=== PATIENT | female | born 2000 | race Caucasian/White ===

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

== ENCOUNTER → 2020-01-31 | Outpatient (CLI) | payer BC ==
--- NOTE | 2020-01-31 12:29 | Diagnostic Imaging Report ---
EXAM: LUMBAR SPINE - 2-3 VIEWS INDICATION: Low back pain. Bilateral hip pain. Feet paresthesias. COMPARISON: None FINDINGS: There are 5 lumbar-type vertebral bodies. Normal alignment. Vertebral body heights preserved. No substantial spondylotic change. No fractures. Visualized pelvis is intact. IMPRESSION: Negative lumbar spine radiographs. Dictated by: Dictated on workstation # [id number]
--- NOTE | 2020-01-31 12:29 | Diagnostic Imaging Report ---
EXAM: PELVIS/ISELA HIPS 5> VIEWS INDICATION: Low back pain COMPARISON: None. FINDINGS: No fracture or malalignment. No suspicious osteoblastic or lytic lesions. No degenerative change. IMPRESSION: Negative pelvis and bilateral hip radiographs. Dictated by: Dictated on workstation # [id number]
== END ==
LOC: RAD 11:37
PROVIDERS: ATTEND Family Medicine
DX: M54.5 Low back pain (principal); M25.551 Pain in right hip; M25.552 Pain in left hip; R20.2 Paresthesia of skin
CPT/HCPCS: 72100; 73523

== ENCOUNTER → 2021-01-03 | Outpatient (CLI) | payer BC ==
--- NOTE | 2021-01-03 15:44 | Diagnostic Imaging Report ---
PROCEDURE: MRI lumbar spine. TECHNIQUE: Multiplanar, multisequence MRI of the lumbar spine was performed without contrast. INDICATION: Low back pain with radiculopathy. COMPARISON: Lumbar spine radiographs 01/31/2020. FINDINGS: Normal alignment. Vertebral body heights are preserved. Normal bone marrow signal. The intervertebral discs are well-preserved. No spinal canal, lateral recess or neural foraminal narrowing. No abnormal signal in the conus which terminates at L1. Normal morphology of the cauda equina. Visualized paravertebral soft tissues are unremarkable. IMPRESSION: Normal MRI of the lumbar spine. Dictated by: Dictated on workstation # [id number]
== END ==
LOC: RAD 13:15
PROVIDERS: ATTEND Family Medicine
DX: M54.16 Radiculopathy, lumbar region (principal)
CPT/HCPCS: 72148

== ENCOUNTER → 2022-02-10 | Outpatient (CLI) | payer BC ==
--- NOTE | 2022-02-10 13:09 | Diagnostic Imaging Report ---
INDICATION: anatomy survey TECHNIQUE: Multiple real-time grayscale images were obtained over the gravid uterus. COMPARISON: None FINDINGS: Cervix measures 3.3 cm in length. Fetus is in cephalic presentation. The placenta is fundal and posterior in position. No placenta previa. The amount of amniotic fluid appears visually appropriate. Maternal adnexa are not well visualized due to advanced gestational age. The following anatomy is visualized and normal: Profile, four-chamber heart, right ventricular outflow tract, left ventricular outflow tract, urinary bladder, three-vessel cord, umbilical cord insertion, diaphragm, spine, lips/nose, cerebral ventricles, kidneys, cerebellum and bilateral lower extremities. Normal variants include prominent extrarenal pelves on both sides as well as subcentimeter choroid plexus cyst. Biometrical measurements are as follows: Biparietal 4.96 cm, age 21 weeks 1 days. Head circumference 17.82 cm, age 20 weeks 2 days. Abdominal circumference 15.40 cm, age 20 weeks 5 days. Femur length 3.43 cm, age 20 weeks 6 days. Sonographic estimate age: 20 weeks 6 days. Sonographic estimated date of delivery: 06/24/2022. Estimated Weight: 368 gm (+/- 54 gm). LMP percentile: 50%. heart rate: 144 beats per minute. number: 1 of 1. IMPRESSION: 1. Single live intrauterine has normal anatomy survey. 2. Dating by today's ultrasound is concordant with clinical age and due date. Dictated by: Dictated on workstation # [id number]
== END ==
LOC: RAD 10:00
PROVIDERS: ATTEND Nurse Practitioner Women's Health
DX: Z34.02 Encounter for supervision of normal first pregnancy, second trimester (principal)
CPT/HCPCS: 76805

== ENCOUNTER 2022-06-24 19:10 | Inpatient (IN) | payer BC ==
[~2022-06-24] VITALS: Ht 160 cm; Wt 92.6 kg
[2022-06-24 19:40] VITALS: BP 132/74
[2022-06-24] MEDS ORDERED: NS IV 500 ML 500 ML ONE (19:42)
[2022-06-24] MEDS ORDERED: D5 LR IV SOLUTION 1,000 ML IV ONE (19:43)
[2022-06-24] MEDS: D5 LR IV SOLUTION 1,000 ML IV SCH (19:48)
[2022-06-24] MEDS ORDERED: MINERAL OIL 30 ML UDC TOP PRN (20:00)
[2022-06-24] MEDS ORDERED: NS IV 500 ML 500 ML IV SCH (20:00)
[2022-06-24 20:06] LABS: BASOPHILS % (AUTO) 0 % (0-10); EOSINOPHILS % (AUTO) 0 % (0-10); HEMATOCRIT 39 % (35-52); HEMOGLOBIN 13.7 g/dL (11.5-16.0); LYMPHOCYTES # (AUTO) 1.9 10^3/uL (1.0-4.0); LYMPHOCYTES % (AUTO) 16 % (12-44); MEAN CORPUSCULAR HEMOGLOBIN 32 pg (25-34); MEAN CORPUSCULAR HGB CONC 35 g/dL (32-36); MEAN CORPUSCULAR VOLUME 91 fL (80-99); MEAN PLATELET VOLUME 11.4 fL (9.0-12.2); MONOCYTES # (AUTO) 0.5 10^3/uL (0.0-1.0); MONOCYTES % (AUTO) 4 % (0-12); NEUTROPHILS # (AUTO) 9.5 10^3/uL (1.8-7.8); NEUTROPHILS % (AUTO) 79 % (42-75); PLATELET COUNT 192 10^3/uL (130-400)
[2022-06-24 20:07] LABS: BILIRUBIN,URINE NEGATIVE (NEGATIVE); CLARITY,URINE CLEAR; COLOR,URINE YELLOW; GLUCOSE, URINE (UA) NEGATIVE (NEGATIVE); KETONES,URINE 1+ (NEGATIVE); LEUKOCYTE ESTERASE ,URINE NEGATIVE (NEGATIVE); NITRITE,URINE NEGATIVE (NEGATIVE); PROTEIN,URINE NEGATIVE (NEGATIVE)
[2022-06-24 20:14] LABS: BACTERIA,URINE TRACE /HPF; WBC,URINE RARE /HPF
[2022-06-24 20:15] LABS: SQUAMOUS EPITHELIAL CELL,UR 0-2 /HPF
[2022-06-24 21:10] VITALS: BP 118/79
[2022-06-24] MEDS ORDERED: CATHETER FLUSH 10 ML SYR IV SCH (22:00)
[2022-06-24 22:10] VITALS: BP 125/74
[2022-06-24 23:09] VITALS: BP 115/67
[2022-06-25] VITALS (62 sets, daily range): BP systolic 99–192; BP diastolic 54–89
[2022-06-25] MEDS: D5 LR IV SOLUTION 1,000 ML IV SCH ×3 (03:19→16:33)
--- NOTE | 2022-06-25 07:26 | History & Physical-OB ---
LAVERNE KELLEYULTON 06/25/22 0726: OB - Chief Complaint & HPI Date/Time Date of Admission: Date of Admission: Jun 24, 2022 at 19:10 Date seen by a Provider: Jun 25, 2022 Time Seen by a Provider: 07:10 Chief Complaint/History OB-Reason for Admission/Chief: Induction of Labor Hx : 1 Hx Para: 0 Expected Date of Delivery: Jun 26, 2022 Gestational Age in Weeks: 39 Gestational Age in Days: 5 Indication for induction: maternal discomfort Allergies and Home Medications Allergies Coded Allergies: No Known Drug Allergies (Unverified , 02/12/09) Patient Home Medication List Home Medication List Reviewed: Yes OB - History Hx of Present Care: Yes Ultrasounds: Normal mid trimester US Obstetrical Complications: None Medical Complications: None Obstetrical History Hx : 1 Hx Para: 0 Number of Living Children: 0 Patient Past Medical History none Social History/Family History Alcohol Use: Denies Use Recreational Drug Use: No Smoking Cessation: Never smoker Immunizations Influenza Vaccine Up-to-Date: No; Not Current Rubella: immune RPR/VDRL: Negative GBS Status: Negative HBsAG: Negative OB - Admission Exam Physical Exam Vitals: Vital Signs 06/24/22 06/25/22 06/25/22 19:40 05:09 06:10 Temp 36.8 Pulse 77 Resp 18 B/P (MAP) 121/83 (96) Pulse Ox 97 O2 Delivery Room Air HEENT: NCAT Heart: Rhythm Normal Lungs: Clear Abdomen: Gravid Extremities: Edema (mild LE edema ) Cervical Dilatation: other (1.5cm @ 0430) Membranes: Intact Heart Rate: 130's Labs Laboratory Tests Test 06/24/22 19:50 Range/Units White Blood Count 12.0 H 4.3-11.0 10^3/uL Red Blood Count 4.32 3.80-5.11 10^6/uL Hemoglobin 13.7 11.5-16.0 g/dL Hematocrit 39 35-52 % Mean Corpuscular Volume 91 80-99 fL Mean Corpuscular Hemoglobin 32 25-34 pg Mean Corpuscular Hemoglobin Concent 35 32-36 g/dL Red Cell Distribution Width 12.3 10.0-14.5 % Platelet Count 192 130-400 10^3/uL Mean Platelet Volume 11.4 9.0-12.2 fL Immature Granulocyte % (Auto) 0 % Neutrophils (%) (Auto) 79 H 42-75 % Lymphocytes (%) (Auto) 16 12-44 % Monocytes (%) (Auto) 4 0-12 % Eosinophils (%) (Auto) 0 0-10 % Basophils (%) (Auto) 0 0-10 % Neutrophils # (Auto) 9.5 H 1.8-7.8 10^3/uL Lymphocytes # (Auto) 1.9 1.0-4.0 10^3/uL Monocytes # (Auto) 0.5 0.0-1.0 10^3/uL Eosinophils # (Auto) 0.0 0.0-0.3 10^3/uL Basophils # (Auto) 0.0 0.0-0.1 10^3/uL Immature Granulocyte # (Auto) 0.1 0.0-0.1 10^3/uL Urine Color YELLOW Urine Clarity CLEAR Urine pH 6.0 5-9 Urine Specific [place] 1.010 L 1.016-1.022 Urine Protein NEGATIVE NEGATIVE Urine Glucose (UA) NEGATIVE NEGATIVE Urine Ketones 1+ H NEGATIVE Urine Nitrite NEGATIVE NEGATIVE Urine Bilirubin NEGATIVE NEGATIVE Urine Urobilinogen 0.2 < = 1.0 MG/DL Urine Leukocyte Esterase NEGATIVE NEGATIVE Urine RBC (Auto) 1+ H NEGATIVE Urine RBC NONE /HPF Urine WBC RARE /HPF Urine Squamous Epithelial Cells 0-2 /HPF Urine Renal Epithelial Cells NONE /HPF Urine Crystals NONE /LPF Urine Bacteria TRACE /HPF Urine Casts NONE /LPF Urine Mucus NEGATIVE /LPF Urine Culture Indicated NO OB - Assessment/Plan/Diagnosis Assessment Assessment: induction of labor, observation Admission Dx 22 F 39+6 wks induced on 06/24/22 for labor of baby boy Admission Status: Inpatient Order (span 2 midnights) Reason for Inpatient Admission: induction of labor Plan Plan: Induction Induction Method: per Misoprostol Protocol DAVID HUERTA DO 06/25/22 1317: Allergies and Home Medications Allergies Coded Allergies: No Known Drug Allergies (Unverified , 02/12/09) OB - Assessment/Plan/Diagnosis Plan Other Plan Verification and Attestation of Medical Student E/M Service A medical student performed and documented this service in my presence. I reviewed and verified all information documented by the medical student and made modifications to such information, when appropriate. I personally performed the physical exam and medical decision making. David Huerta, Jun 25, 2022,13:17 LEMUEL KELLEY Jun 25, 2022 07:26 DAVID HUERTA DO Jun 25, 2022 13:17
[2022-06-25] MEDS ORDERED: OXYTOCIN PRE-MIX DRIP 500 ML IV SCH (08:15)
[2022-06-25] MEDS ORDERED: fentaNYL 2 mcg/ml BUPIVA 0.125 100 ML ONE (08:30)
[2022-06-25] MEDS ORDERED: LACTATED RINGERS 1,000 ML IV ONE ×3 (08:30→13:00)
[2022-06-25] MEDS ORDERED: ONDANSETRON 4 MG/2 ML (SDV) Z0FRAN IV PRN ×2 (09:15→13:00)
[2022-06-25] MEDS ORDERED: CATHETER FLUSH 10 ML SYR IV PRN (09:15)
[2022-06-25] MEDS ORDERED: NALOXONE 0.4 MG/ML 1 ML (NARCAN) VIAL IV PRN ×4 (09:15→21:30)
[2022-06-25] MEDS ORDERED: fentaNYL INJ 100 MCG/2 ML AMP INJ ONE (09:15)
[2022-06-25] MEDS ORDERED: fentaNYL 2 mcg/ml BUPIVA 0.125 100 ML IV SCH (09:15)
[2022-06-25] MEDS ORDERED: fentaNYL INJ 100 MCG/2 ML AMP ONE (09:55)
[2022-06-25] MEDS ORDERED: diphenhydrAMINE 50 MG/ML INJ (BENADRYL) IV PRN (13:00)
[2022-06-25] MEDS ORDERED: METOCLOPRAMIDE INJ 10 MG/2 ML (REGLAN) IV PRN (13:00)
[2022-06-25] MEDS: fentaNYL 2 mcg/ml BUPIVA 0.125 100 ML EPI SCH ×2 (14:13→16:25)
[2022-06-25] MEDS ORDERED: LIDOCAINE/EPI 2% 1:200,00 (XYLOCAINE) 10 ML VIAL ONE (17:14)
[2022-06-25] MEDS ORDERED: PROMETHAZINE INJ 25 MG/ML (PHENERGAN) AMP ONE (18:58)
[2022-06-25] MEDS ORDERED: PROMETHAZINE INJ 25 MG/ML (PHENERGAN) AMP IVP ONE (19:15)
[2022-06-25] MEDS: OXYTOCIN PRE-MIX DRIP 500 ML IV SCH ×2 (21:11→21:38)
[2022-06-25] MEDS ORDERED: HYDROcodone/APAP 5 MG/325 MG (LORTAB) TAB PO PRN (21:30)
[2022-06-25] MEDS ORDERED: MEASLES,MUMPS,RUBELLA 1 EA INJ SQ ONE (21:30)
[2022-06-25] MEDS ORDERED: DIBUCAINE 1% OINTMENT 30 GM TUBE TOP PRN (21:30)
[2022-06-25] MEDS ORDERED: TETANUS,DIPTH,PERTUSS P/F (BOOSTRIX) 0.5 ML VIAL IM ONE (21:30)
--- NOTE | 2022-06-25 21:35 | OB Labor & Delivery Record ---
L&D History History Expected Date of Delivery: Jun 26, 2022 Gestational Age in Weeks: 39 Hx : 1 Hx Para: 0 Complications Events: Routine care Operative Indications (Cesarea: N/A-Vaginal Delivery Intrapartal Events: None L&D Stage1 Stage One Onset of Labor - Date: Jun 25, 2022 Monitors and Tracing Monitor Mode: External Heart Rate: 150 Monitor Accelerations: Uniform Monitor Decelerations: Variable Station: -1 Jail Variability: Average (6-10) Short Term Variability: Present Presentation: Vertex Vital Signs VS - Last 72 Hours, by Label 06/24/22 06/24/22 06/24/22 06/24/22 19:40 21:10 22:10 23:09 Temp 37.3 Pulse 104 98 93 96 Resp 18 18 18 18 B/P (MAP) 118/79 (92) 125/74 (91) 115/67 (83) Pulse Ox 97 O2 Delivery Room Air 06/25/22 06/25/22 06/25/22 06/25/22 00:09 01:09 02:09 03:09 Pulse 93 85 87 85 Resp 18 18 18 18 B/P (MAP) 119/77 (91) 108/61 (77) 117/74 (88) 122/58 (79) 06/25/22 06/25/22 06/25/22 06/25/22 04:09 05:09 06:10 07:08 Temp 36.8 Pulse 90 75 77 79 Resp 18 18 18 18 B/P (MAP) 117/63 (81) 116/71 (86) 121/83 (96) 124/67 (86) O2 Delivery Room Air 06/25/22 06/25/22 06/25/22 06/25/22 07:58 08:10 09:09 09:38 Temp 37.0 Pulse 95 99 96 Resp 18 18 18 B/P (MAP) 126/74 (91) 128/85 (99) 133/62 (85) Pulse Ox 99 O2 Delivery Room Air Room Air Room Air 06/25/22 06/25/22 06/25/22 06/25/22 09:40 09:43 09:46 09:49 Pulse 89 100 81 86 Resp 18 18 18 18 B/P (MAP) 120/63 (82) 129/82 (98) 129/83 (98) 115/76 (89) Pulse Ox 99 99 O2 Delivery Room Air Room Air Room Air Room Air 06/25/22 06/25/22 06/25/22 06/25/22 09:52 09:55 09:58 10:01 Temp 36.8 Pulse 89 86 82 100 Resp 18 18 18 18 B/P (MAP) 123/83 (96) 115/72 (86) 111/71 (84) 117/72 (87) Pulse Ox 100 98 99 O2 Delivery Room Air Room Air Room Air Room Air 06/25/22 06/25/22 06/25/22 06/25/22 10:08 10:12 10:18 10:33 Pulse 81 74 88 89 Resp 18 18 18 18 B/P (MAP) 117/56 (76) 111/59 (76) 109/62 (78) 115/62 (79) Pulse Ox 97 98 99 99 O2 Delivery Room Air Room Air Room Air Room Air 06/25/22 06/25/22 06/25/22 06/25/22 11:00 11:15 11:30 11:45 Temp 36.9 36.9 Pulse 86 102 89 89 Resp 18 18 18 18 B/P (MAP) 119/70 (86) 119/76 (90) 147/63 (91) 147/63 (91) Pulse Ox 97 97 99 99 O2 Delivery Room Air Room Air Room Air Room Air 06/25/22 06/25/22 06/25/22 06/25/22 12:15 12:30 12:45 13:31 Temp 36.6 36.9 Pulse 80 95 99 Resp 18 18 18 18 B/P (MAP) 111/63 (79) 125/63 (83) 107/61 (76) 110/64 (79) Pulse Ox 96 99 99 O2 Delivery Room Air Room Air Room Air Room Air 06/25/22 06/25/22 06/25/22 06/25/22 14:04 14:19 14:35 15:09 Temp 36.9 36.7 36.9 Pulse 81 84 80 96 Resp 18 18 18 18 B/P (MAP) 120/67 (84) 104/57 (73) 99/54 (69) Pulse Ox 99 100 100 100 O2 Delivery Room Air Room Air Room Air Room Air 06/25/22 06/25/22 06/25/22 9/7/22 15:18 15:30 15:46 16:00 Temp 36.9 36.9 36.9 36.9 Pulse 96 106 111 111 Resp 18 18 18 18 B/P (MAP) 114/59 (77) 126/62 (83) 125/65 (85) 125/65 (85) Pulse Ox 100 100 100 100 O2 Delivery Room Air Room Air Room Air Room Air 06/25/22 06/25/22 06/25/22 06/25/22 16:15 16:39 16:39 17:15 Temp 36.9 36.8 Pulse 105 111 111 129 Resp 18 18 18 18 B/P (MAP) 118/70 (86) 110/68 (82) 110/68 (82) 113/67 (82) Pulse Ox 97 100 100 100 O2 Delivery Room Air Room Air Room Air Room Air 06/25/22 06/25/22 06/25/22 06/25/22 17:30 17:47 18:15 18:30 Temp 36.4 Pulse 120 120 122 117 Resp 18 18 18 18 B/P (MAP) 115/74 (88) 115/74 (88) 116/72 (87) 124/61 (82) Pulse Ox 100 100 100 100 O2 Delivery Room Air Room Air Room Air Room Air 06/25/22 18:45 Temp 36.7 Pulse 117 Resp 18 B/P (MAP) 124/84 (97) Pulse Ox 100 O2 Delivery Room Air Rupture of Membranes Spontaneous Ruture of Membrane: No Amniotic Membrane Rupture Time: 0755 Amniotic Membrane Fluid Desc.: Clear Induction/Anesthesia Epidural Cath Placement - Time: 0946 Progress/Notes Patient admitted for elective IOL. Cytotec given overnight. AROM performed this AM, clear fluid. Pitocin augmentation started. She received an epidural and progressed to complete and + 1 station. L&D Stage2 Stage Two Stage II Date: Jun 25, 2022 Monitors and Tracing Monitor Mode: External Heart Rate: 150 Monitor Accelerations: Uniform Monitor Decelerations: Variable Jail Variability: Average (6-10) Short Term Variability: Present Position: Right Occiput Anterior Presentation: Vertex Cord Descript/Complications Cord Vessel Description: 3 Vessels Complications Patient able to progress vertex to + 2 station after 2 hours of pushing, when progress stopped and her pushing became ineffective. heart rate became tachycardic, and deep variables with pushing were noted. To expedite vaginal delivery a kiwi vacuum extractor was used. RML cut, kiwi cup placed over flexion point. 550mmHg applied using handpiece. With one pop off i was able to delivery head with gentle extension over the RML episiotomy. Anterior shoulder then reduced and remainder of delivery was unremarkable. Delivery Type Anterior Shoulder: Left Episiotomy/Perineal Laceration Laceraction(s)/Extensions: Yes Episiotomy Description: Right Mediolateral, 3rd degree Degree (describe repair) RML with extension to 3rd degree laceration repaired using 3-0 and 2-0 vicryl suture in usual fashion. Condition of Infant Delivery 1 minute Comment: 9 5 minute Comment: 9 Notes Live male infant weight 7lbs 13oz. Condition of Condition of : Living Exam: No Observed Abnormalities Resuscitation Resuscitation: N/A - Spontaneous Resp L&D Stage3 Stage Three Stage III Date: Jun 25, 2022 Pictocin Pitocin Administration mu/min: 8 Pitocin ml/hr: 8 Pitocin Administration Comment: 30 mu wide open after delivery of placenta Placenta Delivery Placenta Delivery: Spontaneous Delivery Summary Summary Estimated blood loss (mL): 400 Attending at delivery: David Huerta DO Condition of Delivery Examined: Cervix Examined, Uterus Explored Post Hemorrhage: No Condition of Mother stable Condition of (s) stable DAVID HUERTA DO Jun 25, 2022 21:35
--- NOTE | 2022-06-25 21:39 | Discharge Inst-Women's Service ---
Discharge Inst-Women's Serv Depart Medication/Instructions New, Converted or Re-Newed RX: Transmitted to Pharmacy Final Diagnosis PPD 2 VAVD Problems Reviewed?: Yes Consults/Follow Up Additional Follow Up: Yes Orders/Referrals Dr. Huerta in 6 weeks Activity Activity: Activity as Tolerated Driving Instructions: No Driving for 1 Week NO SMOKING: NO SMOKING Nothing Inside Vagina: No Douching, No [place], No Tampons Diet Discharge Diet: No Restrictions Symptoms to Report to : Bleeding Excessive, Pain Increased, Fever Over 101 Degrees F, Vaginal Bleeding Increase, Questions/Concerns For Any Problems or Questions: Contact Your Physician DAVID HUERTA DO Jun 25, 2022 21:39
[2022-06-25] MEDS ORDERED: BENZ78AE5 TP (21:41)
[2022-06-25] MEDS ORDERED: DOCU100C37 PO (21:41)
[2022-06-25] MEDS ORDERED: ACHD5005 PO (21:41)
[2022-06-25] MEDS ORDERED: PNV1TABL67 PO (21:41)
[2022-06-25] MEDS ORDERED: DIBU30OI TOP (21:41)
[2022-06-25] MEDS ORDERED: FERR325T24 PO (21:41)
[2022-06-25] MEDS ORDERED: IBUP-844 PO (21:41)
[2022-06-25] MEDS ORDERED: CATHETER FLUSH 10 ML SYR IV SCH (22:00)
[2022-06-26] MEDS: IBUPROFEN 600 MG (MOTRIN) TAB PO SCH ×6 (00:24→23:43)
[2022-06-26] MEDS: WITCH HAZEL(TUCKS) 40 EA JAR TOP PRN ×2 (00:24→04:43)
[2022-06-26] MEDS: BENZOCAINE/MENTHOL (DERMOPLAST) 56 ML CAN TP PRN ×2 (00:24→04:43)
[2022-06-26] MEDS: ACETAMINOPHEN 500 MG TAB (TYLENOL) PO PRN ×4 (04:01→22:37)
[2022-06-26 04:02] VITALS: BP 117/55
[2022-06-26] MEDS ORDERED: LIDOCAINE/EPI 2% 1:200,00 (XYLOCAINE) 10 ML VIAL INJ ONE (05:15)
[2022-06-26] MEDS ORDERED: LIDOCAINE/EPI 2% 1:200,00 (XYLOCAINE) 10 ML VIAL ONE (05:18)
[2022-06-26 06:13] LABS: BASOPHILS % (AUTO) 0 % (0-10); EOSINOPHILS % (AUTO) 0 % (0-10); HEMATOCRIT 30 % (35-52); HEMOGLOBIN 10.3 g/dL (11.5-16.0); LYMPHOCYTES # (AUTO) 1.8 10^3/uL (1.0-4.0); LYMPHOCYTES % (AUTO) 10 % (12-44); MEAN CORPUSCULAR HEMOGLOBIN 31 pg (25-34); MEAN CORPUSCULAR HGB CONC 34 g/dL (32-36); MEAN CORPUSCULAR VOLUME 92 fL (80-99); MEAN PLATELET VOLUME 11.6 fL (9.0-12.2); MONOCYTES # (AUTO) 1.3 10^3/uL (0.0-1.0); MONOCYTES % (AUTO) 7 % (0-12); NEUTROPHILS # (AUTO) 14.3 10^3/uL (1.8-7.8); NEUTROPHILS % (AUTO) 82 % (42-75); PLATELET COUNT 155 10^3/uL (130-400); WHITE BLOOD COUNT 17.5 10^3/uL (4.3-11.0)
--- NOTE | 2022-06-26 07:43 | Postpartum Progress Note ---
JUSTINLAVERNELEMUEL 06/26/22 0743: Note Note Day # 1 Subjective: Patient is without complaints. Ambulating, voiding. Tolerating a regular diet without nausea or vomiting. Normal lochia. Pain is well controlled with oral pain medications. Breast feeding with nipple shield assist. Objective: VSS afebrile WBC 17.2 Physical Exam: General - Alert and oriented, no apparent distress Abdomen - Soft, appropriately tender to palpation, non-distended, fundus firm at umbilicus Extremities - no edema, negative Nick's bilaterally Assessment: Acute blood loss anemia Hgb 10.3 post- day # 1, status post vacuum assisted vaginal delivery. Recovering well, hemodynamically stable Plan: Routine care. Encourage breast feeding. Encourage ambulation. Ferrous sulfate supplementation. Plan for discharge today Vitals - Labs Vital Signs - I&O Vital Signs Date Time Temp Pulse Resp B/P (MAP) Pulse Ox O2 Delivery O2 Flow Rate FiO2 06/26/22 04:02 36.3 97 18 117/55 (75) 97 Room Air 06/25/22 23:33 142 18 123/58 (79) Room Air 06/25/22 23:02 113 18 116/58 (77) Room Air 06/25/22 22:47 113 18 109/58 (75) Room Air 06/25/22 22:32 122 18 112/61 (78) Room Air 06/25/22 22:17 130 18 120/58 (78) Room Air 06/25/22 22:02 37.7 121 18 120/80 (93) Room Air 06/25/22 21:32 118 18 111/68 (82) Room Air 06/25/22 21:17 137 18 126/59 (81) Room Air 06/25/22 21:02 110 18 122/57 (78) Room Air 06/25/22 20:47 18 Room Air 06/25/22 20:45 131 18 192/89 (123) Room Air 06/25/22 20:30 115 18 129/69 (89) Room Air 06/25/22 20:15 103 18 127/78 (94) Room Air 06/25/22 20:00 85 18 114/71 (85) Room Air 06/25/22 19:45 99 18 116/69 (85) Room Air 06/25/22 19:30 98 18 104/65 (78) Room Air 06/25/22 19:15 107 18 123/67 (85) Room Air 06/25/22 18:45 36.7 117 18 124/84 (97) 100 Room Air 06/25/22 18:30 117 18 124/61 (82) 100 Room Air 06/25/22 18:15 36.4 122 18 116/72 (87) 100 Room Air 06/25/22 17:47 120 18 115/74 (88) 100 Room Air 06/25/22 17:30 120 18 115/74 (88) 100 Room Air 06/25/22 17:15 129 18 113/67 (82) 100 Room Air 06/25/22 16:39 36.8 111 18 110/68 (82) 100 Room Air 06/25/22 16:39 36.9 111 18 110/68 (82) 100 Room Air 06/25/22 16:15 105 18 118/70 (86) 97 Room Air 06/25/22 16:00 36.9 111 18 125/65 (85) 100 Room Air 06/25/22 15:46 36.9 111 18 125/65 (85) 100 Room Air 06/25/22 15:30 36.9 106 18 126/62 (83) 100 Room Air 06/25/22 15:18 36.9 96 18 114/59 (77) 100 Room Air 06/25/22 15:09 36.9 96 18 100 Room Air 06/25/22 14:35 36.7 80 18 99/54 (69) 100 Room Air 06/25/22 14:19 36.9 84 18 104/57 (73) 100 Room Air 06/25/22 14:04 81 18 120/67 (84) 99 Room Air 06/25/22 13:31 36.9 99 18 110/64 (79) 99 Room Air 06/25/22 12:45 95 18 107/61 (76) 99 Room Air 06/25/22 12:30 36.6 80 18 125/63 (83) 96 Room Air 06/25/22 12:15 18 111/63 (79) Room Air 06/25/22 11:45 36.9 89 18 147/63 (91) 99 Room Air 06/25/22 11:30 36.9 89 18 147/63 (91) 99 Room Air 06/25/22 11:15 102 18 119/76 (90) 97 Room Air 06/25/22 11:00 86 18 119/70 (86) 97 Room Air 06/25/22 10:33 89 18 115/62 (79) 99 Room Air 06/25/22 10:18 88 18 109/62 (78) 99 Room Air 06/25/22 10:12 74 18 111/59 (76) 98 Room Air 06/25/22 10:08 81 18 117/56 (76) 97 Room Air 06/25/22 10:01 100 18 117/72 (87) 99 Room Air 06/25/22 09:58 82 18 111/71 (84) 98 Room Air 06/25/22 09:55 36.8 86 18 115/72 (86) Room Air 06/25/22 09:52 89 18 123/83 (96) 100 Room Air 06/25/22 09:49 86 18 115/76 (89) 99 Room Air 06/25/22 09:46 81 18 129/83 (98) Room Air 06/25/22 09:43 100 18 129/82 (98) 99 Room Air 06/25/22 09:40 89 18 120/63 (82) Room Air 06/25/22 09:38 96 18 133/62 (85) 99 Room Air 06/25/22 09:09 99 18 128/85 (99) Room Air 06/25/22 08:10 95 18 126/74 (91) Room Air 06/25/22 07:58 37.0 I & O 06/26/22 07:00 Intake Total 2100 ml Balance 2100 ml Labs Laboratory Tests 06/26/22 05:49: White Blood Count 17.5H, Red Blood Count 3.28L, Hemoglobin 10.3#L, Hematocrit 30L, Mean Corpuscular Volume 92, Mean Corpuscular Hemoglobin 31, Mean Corpuscular Hemoglobin Concent 34, Red Cell Distribution Width 12.4, Platelet Count 155, Mean Platelet Volume 11.6, Immature Granulocyte % (Auto) 1, Neutrophils (%) (Auto) 82H, Lymphocytes (%) (Auto) 10L, Monocytes (%) (Auto) 7, Eosinophils (%) (Auto) 0, Basophils (%) (Auto) 0, Neutrophils # (Auto) 14.3H, Lymphocytes # (Auto) 1.8, Monocytes # (Auto) 1.3H, Eosinophils # (Auto) 0.0, Basophils # (Auto) 0.0, Immature Granulocyte # (Auto) 0.1 LUL HUERTA DO 06/26/22 1317: Note Note Verification and Attestation of Medical Student E/M Service A medical student performed and documented this service in my presence. I reviewed and verified all information documented by the medical student and made modifications to such information, when appropriate. I personally performed the physical exam and medical decision making. Lul Huerta, Jun 26, 2022,13:17 LEMUEL KELLEY Jun 26, 2022 07:43 LUL HUERTA DO Jun 26, 2022 13:17
[2022-06-26 08:00] VITALS: BP 121/59
[2022-06-26] MEDS: DOCUSATE SODIUM 100 MG (COLACE) CAP PO SCH ×2 (09:38→22:34)
[2022-06-26] MEDS: FERROUS SULF 325 MG (IRON) TAB PO SCH (09:38)
[2022-06-26] MEDS: PRENATAL VITAMIN 1 EA TAB PO SCH (09:38)
--- NOTE | 2022-06-26 10:04 | Anesthesia-Regional Post-Op ---
Regional Patient Condition Mental Status: Alert, Oriented x3 Circulation: Same as Pre-Op Headache: Absent Sensation: Full Recovery Motor Block: Absent Post Op Complications Complications None Follow Up Care/Instructions Patient Instructions None needed. Anesthesia/Patient Condition Patient is doing well, no complaints, stable vital signs, no apparent adverse anesthesia problems. No complications reported per nursing. JIA MONDRAGON CRNA Jun 26, 2022 10:04
[2022-06-26 13:45] VITALS: BP 121/73
[2022-06-26 17:45] VITALS: BP 116/61
[2022-06-26 23:45] VITALS: BP 114/68
[2022-06-27] MEDS: ACETAMINOPHEN 500 MG TAB (TYLENOL) PO PRN ×2 (04:37→10:10)
[2022-06-27] MEDS: IBUPROFEN 600 MG (MOTRIN) TAB PO SCH ×2 (06:53→11:56)
[2022-06-27 06:56] VITALS: BP 120/56
[2022-06-27 10:10] VITALS: BP 118/65
[2022-06-27] MEDS: PRENATAL VITAMIN 1 EA TAB PO SCH (10:10)
[2022-06-27] MEDS: FERROUS SULF 325 MG (IRON) TAB PO SCH (10:10)
[2022-06-27] MEDS: DOCUSATE SODIUM 100 MG (COLACE) CAP PO SCH (10:11)
--- NOTE | 2022-06-27 10:56 | Postpartum Progress Note ---
Note Note Day # 2 Subjective: Patient is without complaints. Ambulating, voiding. Tolerating a regular diet without nausea or vomiting. Normal lochia. Pain is well controlled with oral pain medications. Physical Exam: General - Alert and oriented, no apparent distress Abdomen - Soft, appropriately tender to palpation, non-distended, fundus firm at umbilicus Extremities - no edema, negative Nick's bilaterally Assessment: Post- day # 2, status post vaginal delivery. Recovering well, hemodynamically stable Acute blood loss anemia Plan: Routine care. Encourage breast feeding. Encourage ambulation. Ferrous sulfate supplementation. Plan for discharge today Vitals - Labs Vital Signs - I&O Vital Signs Date Time Temp Pulse Resp B/P (MAP) Pulse Ox O2 Delivery O2 Flow Rate FiO2 06/27/22 10:10 36.9 75 18 118/65 (82) 98 Room Air 06/27/22 06:56 36.4 95 18 120/56 (77) 98 Room Air 06/26/22 23:45 36.0 113 18 114/68 (83) 96 Room Air 06/26/22 17:45 36.3 84 18 116/61 (79) 98 Room Air 06/26/22 13:45 36.4 82 18 121/73 (89) 98 Room Air PHILLIP REYNOLDS APRN Jun 27, 2022 10:56
[2022-06-27] MEDS: WITCH HAZEL(TUCKS) 40 EA JAR TOP PRN (12:22)
[2022-06-27 13:30] VITALS: BP 118/65
== END 2022-06-27 13:30 | disposition home or self-care (01) | DRG 768 ==
LOC: LDRP 19:10
PROVIDERS: ADMIT Obstetrics & Gynecology; ATTEND Obstetrics & Gynecology
PROC: 10E0XZZ Delivery of Products of Conception, External Approach (ICD-10-PCS; principal; 2022-06-25)
PROC: 0DQR0ZZ Repair Anal Sphincter, Open Approach (ICD-10-PCS; 2022-06-25)
PROC: 10907ZC Drainage of Amniotic Fluid, Therapeutic from Products of Conception, Via Natural or Artificial Opening (ICD-10-PCS; 2022-06-25)
PROC: 0W8NXZZ Division of Female Perineum, External Approach (ICD-10-PCS; 2022-06-25)
DX: O70.20 Third degree perineal laceration during delivery, unspecified (principal); Z37.0 Single live birth; D62 Acute posthemorrhagic anemia; Z3A.39 39 weeks gestation of pregnancy; O90.81 Anemia of the puerperium
CPT/HCPCS: 36415; 81000; 85025; 86850; 86900; 86901